=== PATIENT | male | born 1970 | race Caucasian/White ===

== ENCOUNTER 2017-07-22 06:45 | Emergency (ER) | payer SELFPAY ==
[2017-07-22] MEDS: NITROGLYCERIN 0.4 MG TAB.SUBL SL ONE ×2 (06:46→06:55)
--- NOTE | 2017-07-22 06:57 | ED Physician Documentation ---
Chest Pain - HISTORIAN Historian: patient - HPI Stated Complaint: CHEST PAIN Chief Complaint: Chest Pain Onset: hours (4) Timing: sudden onset Duration: constant Last known Well Code/Unknown Code: Unknown Context: rest Severity: moderate (8) Quality: pressure, burning Chest Pain Radiation: jaw, arms Chest Pain Signs/Symptoms: denies: nausea, vomiting, dizziness, palpitations Worsened By: nothing Relieved By: nothing - ROS CONST: none - PAST HX ND risk factors: no pertinent history DVT/PE Risk Factors: none TAD/AAA risk factors: none Neuro deficit: none GI disease: none Lung disease: none Surgeries/Procedures: none - SOCIAL HX Smoking History: cigarettes Alcohol Use: rarely Drug Use: none - FAMILY HX Family HX: none - VITAL SIGNS Vital Signs: Vital Signs Temp Pulse Resp BP Pulse Ox 93 H 16 132/116 93 07/22/17 06:45 07/22/17 06:45 07/22/17 06:45 07/22/17 06:45 - REVIEWED ASSESSMENTS Nursing Assessment Reviewed: Yes Vitals Reviewed: Yes <Sakina Childress - Last Filed: 07/22/17 06:55> - HPI Onset: hours Last known Well Date: 07/22/17 Last Known Well Time: 02:30 - VITAL SIGNS Vital Signs: Vital Signs Temp Pulse Resp BP Pulse Ox 98.2 F 113 H 22 134/96 98 07/22/17 07:10 07/22/17 07:10 07/22/17 07:10 07/22/17 07:10 07/22/17 07:10 <Rodger Bryant - Last Filed: 08/20/17 07:16> - PAST HX Allergies/Adverse Reactions: Allergies Allergy/AdvReac Type Severity Reaction Status Date / Time No Known Allergies Allergy Verified 07/22/17 06:51 Home Medications: Ambulatory Orders Medication Instructions Recorded NK [NK] 07/22/17 ED Results Lab/Radiology - Lab Results Lab Results: Lab Results 07/22/17 07/22/17 07/22/17 07:10 07:10 07:10 WBC 5.65 K/ul K/ul (4.00-12.00) RBC 4.72 M/ul M/ul (3.90-5.20) Hgb 15.8 g/dL g/dL (12.0-18.0) Hct 45.4 % % (37.0-53.0) MCV 96.1 fl fl (80.0-100.0) MCH 33.5 pg pg (28.0-34.0) MCHC 34.9 g/dL g/dL (30.0-36.0) RDW 11.9 % % (11.3-14.3) Plt Count 225 K/mm3 K/mm3 (130-400) Neut % (Auto) 47.5 % % (39.0-79.0) Lymph % (Auto) 33.8 % % (16.0-50.0) [place] % (Auto) 11.9 % H % (0.0-11.0) Eos % (Auto) 2.7 % % (0.0-6.8) Baso % (Auto) 1.2 (0.0-1.5) Neut # (Auto) 2.7 # k/uL # k/uL (1.4-7.7) Lymph # (Auto) 1.9 # k/uL # k/uL (0.6-4.0) [place] # (Auto) 0.7 # k/uL # k/uL (0.0-0.9) Eos # (Auto) 0.2 # k/uL # k/uL (0.0-0.6) Baso # (Auto) 0.1 # k/uL # k/uL (0.0-0.5) Reactive Lymphs % 2.9 % % (0.0-5.0) Reactive Lymphs # 0.2 # k/uL # k/uL (0.0-0.8) Sodium 147 mmol/L H mmol/L (136-145) Potassium 3.6 mmol/L mmol/L (3.5-5.1) Chloride 104 mmol/L mmol/L (98-107) Carbon Dioxide 28 mmol/L mmol/L (22-30) BUN 8 mg/dL L mg/dL (9-20) Creatinine 0.80 mg/dL mg/dL (0.66-1.25) Estimated Creat Clear 105 Est GFR ( Amer) > 60 (60 - ) Est GFR (Non-Af Amer) > 60 (60 - ) Glucose 101 mg/dL mg/dL (74-106) Calcium 8.9 mg/dL mg/dL (8.4-10.2) Total Bilirubin 0.6 mg/dL mg/dL (0.2-1.3) AST 29 U/L U/L (15-46) ALT 30 U/L U/L (13-69) Alkaline Phosphatase 54 U/L U/L (38-126) CK-MB (CK-2) 1.8 ng/mL ng/mL (0.0-5.6) Troponin I < 0.03 ng/mL L ng/mL (0.03-0.06) Total Protein 7.5 g/dL g/dL (6.3-8.2) Albumin 4.3 g/dL g/dL (3.5-5.0) - Orders Orders: ED Orders Category Date Time Status IV Started NOW Care 07/22/17 06:[address] IV Lock 1T Care 07/22/17 06:59 Active CBC/PLATELET/DIFF Stat Lab 07/22/17 07:10 Completed CKMB Stat Lab 07/22/17 07:10 Completed CMP Stat Lab 07/22/17 07:10 Completed TROPONIN I (cTnI) Stat Lab 07/22/17 07:10 Completed 0.9 % Sodium Chloride [Normal Saline] 1,000 ml Med 07/22/17 06:58 Discontinued IV Q1H Aspirin Med 07/22/17 06:59 Discontinued 324 mg PO NOW ONE Clopidogrel Bisulfate [Plavix] Med 07/22/17 06:57 Discontinued 600 mg PO NOW ONE Heparin Sodium [Heparin] Med 07/22/17 06:57 Discontinued 5,000 unit IV NOW ONE Heparin Sodium,Porcine/D5w [Heparin] Med 07/22/17 06:58 Discontinued 20,000 unit in 500 ml IV .STK-MED Morphine Sulfate [DepoDur] Med 07/22/17 07:00 Discontinued 2 mg .ROUTE .STK-MED ONE Morphine Sulfate [DepoDur] Med 07/22/17 07:00 Discontinued 2 mg IVP NOW ONE Nitroglycerin [Nitroquick] Med 07/22/17 07:04 Discontinued 0.4 mg SL NOW ONE Nitroglycerin [Nitroquick] Med 07/22/17 07:05 Discontinued 0.4 mg SL NOW ONE Nitroglycerin [Nitroquick] Med 07/22/17 07:03 Discontinued 0.4 mg SL NOW STA Ondansetron HCl/Pf [Zofran 4 mg/2 ml] Med 07/22/17 07:03 Discontinued 4 mg .ROUTE .STK-MED ONE Oxygen Daily Oxygen 07/22/17 07:00 Ordered EKG WITH COMPARISON Stat Ther 07/22/17 Completed <Rodger Bryant - Last Filed: 08/20/17 07:16> Chest Pain Physical Exam - EXAM General Appearance: no acute distress, alert Respiratory: no resp. distress, chest non-tender, nml breath sounds CVS: reg. rate & rhythm, no murmur, no gallop Abdomen: soft Skin: warm/dry, normal color Extremities: non-tender, normal range of motion Neuro: oriented X3, CN's nml as tested, motor nml <Sakina Childress - Last Filed: 07/22/17 06:55> Discharge Decision to Admit: [id number] Date of Decison to Admit: 07/22/17 Decision Time: 06:57 <Sakina Childress - Last Filed: 07/22/17 06:55> <Rodger Bryant - Last Filed: 08/20/17 07:16> Clincal Impression: STEMI (ST elevation myocardial infarction) Qualifiers: Involved coronary artery: unspecified coronary artery Qualified Code(s): I21.3 - ST elevation (STEMI) myocardial infarction of unspecified site Referrals: Primary Doctor,No [Primary Care Provider] - 2 Days Additional Instructions: Dr Coles at [facility] accepting [id number] DG Condition: Serious Disposition: XFER [facility]
[2017-07-22] MEDS: CLOPIDOGREL BISULFATE 75 MG TABLET PO ONE (06:58)
[2017-07-22] MEDS: HEPARIN SODIUM 5000 UNIT/1 ML IV ONE (06:58)
[2017-07-22] MEDS: ASPIRIN 81 MG CHEW TAB PO ONE (07:00)
[2017-07-22] MEDS: 0.9 % SODIUM CHLORIDE 1,000 ML IV ONE (07:00)
[2017-07-22] MEDS: NITROGLYCERIN 0.4 MG TAB.SUBL SL STA (07:00)
[2017-07-22] MEDS: HEPARIN SODIUM,PORCINE/D5W 20,000 UNIT/500 ML BAG IV ONE (07:00)
[2017-07-22] MEDS: MORPHINE SULFATE 2 MG/ML PREFILLED SYR IVP ONE (07:03)
[2017-07-22] MEDS: MORPHINE SULFATE 2 MG/ML PREFILLED SYR ONE (07:07)
[2017-07-22] MEDS: ONDANSETRON HCL/PF 4 MG/ 2ML VIAL ONE (07:08)
[2017-07-22 07:26] LABS: MEAN CORPUSCULAR VOLUME 96.1 fl (80.0-100.0)
[2017-07-22 07:27] LABS: MEAN CORPUSCULAR HEMOGLOBIN 33.5 pg (28.0-34.0)
[2017-07-22 07:28] LABS: BASOPHILS % 1.2 (0.0-1.5); EOSINOPHILS % 2.7 % (0.0-6.8); MONOCYTES % 11.9 % (0.0-11.0)
[2017-07-22 07:29] LABS: NEUTROPHILS # 2.7 # k/uL (1.4-7.7)
[2017-07-22 07:31] VITALS: BP 134/96
[2017-07-22 07:34] LABS: eGFR (African) > 60; eGFR (Non-African) > 60
== END 2017-07-22 07:10 | disposition short-term general hospital (02) ==
LOC: ED 06:45
DX: I21.3 ST elevation (STEMI) myocardial infarction of unspecified site (principal); F17.210 Nicotine dependence, cigarettes, uncomplicated
CPT/HCPCS: 80053; 82553; 84484; 85025; 93005; 96365; 96368; 96375; 99284; J1644; J2270; J2405; J7030; S1016